=== PATIENT | female | born 1995 | race Hispanic/Latino ===

== ENCOUNTER 2017-12-15 20:41 | Emergency (ER) | payer MEDICAID ==
[~2017-12-15] VITALS: Ht 165.1 cm; Wt 96.2 kg
[2017-12-15 20:58] VITALS: BP 152/68
--- NOTE | 2017-12-15 21:59 | ER.PDOC ---
General Chief Complaint: Extremities Stated Complaint: ANKLE INJURY Time seen by MD: 21:57 Source: patient Exam Limitations: no limitations History of Present Illness Initial Comments Left ankle pain from falling yesterday. She did not hit her head. Severity: moderate Context: fall Modifying Factors: pain on movement Allergies: Coded Allergies: Penicillins (Verified Allergy, Severe, hives, 12/15/17) Past Medical History Medical History: no pertinent history Surgical History: no surgical history LMP (females 10-50): 3 weeks Social History Smoking: non-smoker Alcohol Use: none Drug Use: none Review of Systems Constitutional: no symptoms reported EENTM: no symptoms reported Respiratory: no symptoms reported Cardiovascular: no symptoms reported Gastrointestinal: no symptoms reported Musculoskeletal: see HPI All Other Systems: Reviewed and Negative Physical Exam General Appearance: Alert, No Apparent Distress Foot: nml inspection, non-tender Ankle: tenderness (left ankle), swelling (left ankle) Gait: limited by pain Neuro: sensation nml, motor nml Vascular: no vascular compromise Tendons: tendon function nml Leg/Knee/Thigh: uninjured above ankle Head/ENT: nml inspection, pharynx nml Neck/Back: nml inspection, non-tender Resp/CVS: no resp distress Abdomen: non-tender, no organomegaly EKG/XRAY/CT/US XRAY Comments: No fracture of right ankle Departure Time of Disposition: 22:39 Disposition: 01 HOME, SELF-CARE Impression: Primary Impression: Right ankle injury Condition: Stable Referrals: PCP,UNKNOWN (PCP) PRIMARY CARE PROVIDER Additional Instructions: Ice Tramadol Ibuprofen F/U with your PCP next week Duration or Time Spent with Pa: 45 mins Problem Qualifiers Primary Impression: Right ankle injury Encounter type: initial encounter Qualified Codes: S99.911A - Unspecified injury of right ankle, initial encounter LOUISE WIN MD Dec 15, 2017 21:59
--- NOTE | 2017-12-15 22:21 | DIREP ---
PROCEDURE:XRAY ANKLE MIN 3VWS-RT COMPARISON:None. INDICATIONS:pain FINDINGS: BONES:There is no visible fracture. JOINTS:Within normal limits. SOFT TISSUES:Soft tissue changes. OTHER:Negative. CONCLUSION: 1. There is no visible fracture or disruption of the ankle mortise. Recommend follow-up in 5-7 days if pain and ability to walk are not better. Dictated by: Joni Mckinley M.D. on 12/15/2017 at 10:19 PM
[2017-12-15] MEDS ORDERED: TRIPLE ANTIBIOTIC OINTMENT TP ONE (22:47)
[2017-12-15 22:50] VITALS: BP 134/76
[2017-12-15 22:56] VITALS: BP 134/76
--- NOTE | 2017-12-15 22:56 | NUR ---
Fareed Wrap Placed Fareed wrap on right ankle per Dr. Cain's verbal order
== END 2017-12-15 22:53 | disposition home or self-care (01) ==
LOC: ER 20:41
DX: S99.911A Unspecified injury of right ankle, initial encounter (principal); Z88.0 Allergy status to penicillin; W18.30XA Fall on same level, unspecified, initial encounter; Y93.01 Activity, walking, marching and hiking; Y92.89 Other specified places as the place of occurrence of the external cause; Y99.8 Other external cause status
CPT/HCPCS: 99284; 73610-RT

== ENCOUNTER → 2018-02-01 | Outpatient (CLI) | payer SELFPAY ==
[2018-02-01 16:46] LABS: BASOPHIL % 0.2 % (0.0-0.2); EOSINOPHIL # 0.3 10^3/uL (0.0-0.2); EOSINOPHIL % 3.7 % (0.0-5.0); HEMOGLOBIN 14.7 g/dL (12.0-15.0); LYMPHOCYTES # 2.5 10^3/uL (1.0-4.8); LYMPHOCYTES % 27.3 % (24.0-44.0); MEAN CELL HGB 29.4 pg (26-34); MEAN CELL HGB CONCENTRATION 32.8 g/dL (33-37); MEAN CORP VOLUME 89.6 fL (78-100); MEAN PLATELET VOLUME 11.2 fL (7.8-11.0); MONOCYTES # 0.5 10^3/uL (0.3-0.8); NEUTROPHIL # 5.9 10^3/uL (1.8-7.7); NEUTROPHILS % 63.6 % (41.0-85.0); PLATELET COUNT 283 10^3/uL (150-400); RED CELL DISTRIBUTION WIDTH 12.9 % (11.5-14.5); WHITE BLOOD CELL 9.3 10^3/uL (4.5-11.0)
[2018-02-01 17:43] LABS: CALCIUM 9.4 mg/dL (8.4-10.5); CARBON DIOXIDE 22.7 mmol/L (20.0-32)
== END | disposition home or self-care (01) ==
LOC: LAB 16:17
PROVIDERS: ATTEND Nurse Practitioner Family
DX: Z32.02 Encounter for pregnancy test, result negative (principal); I63.9 Cerebral infarction, unspecified
CPT/HCPCS: 36415; 80053; 82607; 82728; 82746; 83540; 83550; 84703; 85025; 85060

== ENCOUNTER 2020-06-09 20:51 | Emergency (ER) | payer OTHER, SELFPAY ==
[~2020-06-09] VITALS: Ht 167.6 cm; Wt 113.4 kg
[2020-06-09 21:03] VITALS: BP_SYST 153; BP_SYST 158; BP_DIAS 73; BP_DIAS 74
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
--- NOTE | 2020-06-09 21:17 | ER.PDOC ---
General Chief Complaint: Head Injury Stated Complaint: POSSIBLE HEAD INJURY TRAVEL OUT OF US: No Time seen by MD: 09:11 Source: patient, family Exam Limitations: no limitations History of Present Illness Initial Comments MEMORY LOSS Timing/Duration: 1-3 hours Severity: mild Associated Symptoms: denies symptoms Allergies: Coded Allergies: Penicillins (Verified Allergy, Severe, hives, 12/15/17) Past Medical History Medical History: no pertinent history Surgical History: no surgical history Social History Alcohol Use: none Drug Use: none Reviewed Nursing Reviewed: Vital Signs, Abn. Noted Review of Systems Constitutional: no symptoms reported Gastrointestinal: nausea Psychiatric/Neurological: depressed, headache All Other Systems: Reviewed and Negative Physical Exam General Appearance: No Apparent Distress EENT: eyes nml inspection Neck: Non-Tender Respiratory: chest non-tender CVS: reg rate & rhythm Gastrointestinal: Normal Bowel Sounds Back: Normal Inspection Extremities: Normal Range of Motion Neurologic/Psychiatric: data integration architect II-XII NML as Tested, Motor Weakness Skin: Normal Color Lymphatic: No Adenopathy Results/Orders Results/Orders Orders - KALEE MARTIN MD Cbc With Auto Diff (06/09/20 21:10) Comprehensive Metabolic Panel (06/09/20 21:10) Creatine Kinase (06/09/20 21:10) PT (06/09/20 21:10) Partial Thromboplastin Time. (06/09/20 21:10) Troponin I (06/09/20 21:10) Ekg-Routine (06/09/20 21:10) Ct Head Wo Contrast (06/09/20 21:10) Ondansetron (Zofran Odt) (06/09/20 22:04) Ondansetron (Zofran Odt) (06/09/20 22:06) Vital Signs Date Time Temp Pulse Resp B/P (MAP) Pulse Ox O2 Delivery O2 Flow Rate FiO2 06/09/20 21:03 98.2 92 18 158/73 (101) 98 Room Air 06/09/20 21:03 98.0 92 20 06/09/20 21:03 98.2 92 18 98 Administered Medications Medications (Trade) Dose Ordered Sig/Sissy Route PRN Reason Start Time Stop Time Status Last Admin Dose Admin Ondansetron HCl (Zofran Odt) 4 mg STAT STAT SL 06/09/20 22:04 06/09/20 22:05 DC 3/23/21 22:08 4 MG Laboratory Tests Test 06/09/20 21:44 White Blood Count 9.2 10^3/uL (4.5-11.0) Red Blood Count 4.86 10^6/uL (4.00-5.20) Hemoglobin 14.8 g/dL (12.0-15.0) Hematocrit 43.7 % (36.0-46.0) Mean Corpuscular Volume 89.9 fL (78-100) Mean Corpuscular Hemoglobin 30.5 pg (26-34) Mean Corpuscular Hemoglobin Concent 33.9 g/dL (33-36.5) Red Cell Distribution Width 11.9 % (11.5-14.5) Platelet Count 268 10^3/uL (150-400) Mean Platelet Volume 10.9 fL (7.8-11.0) Neutrophils (%) (Auto) 59.3 % (41.0-85.0) Lymphocytes (%) (Auto) 32.0 % (24.0-44.0) Monocytes (%) (Auto) 5.4 % (5.0-12.0) Neutrophils # (Auto) 5.5 10^3/uL (1.8-7.7) Lymphocytes # (Auto) 2.95 10^3/uL1 (1.0-4.8) Monocytes # (Auto) 0.5 10^3/uL (0.3-0.8) Absolute Immature Granulocyte (auto 0.02 10^3 u/L (0-2) Absolute Eosinophils (auto) 0.3 10^3/uL (0.0-0.2) H Immature Granulocytes % 0.20 % (0.00-0.50) Eosinophils % 2.9 % (0.0-5.0) Basophils % 0.2 % (0.0-0.2) Basophils # 0.0 10^3/uL (0.0-0.1) Prothrombin Time 10.6 SEC (9.3-11.3) Prothrombin Time INR (Non-Therap) 1.0 Activated Partial Thromboplast Time 24.1 SEC (24.67-30.72) Sodium Level 142 mmol/L (132-145) Potassium Level 3.8 mmol/L (3.6-5.2) Chloride Level 106.0 mmol/L (96-109) Carbon Dioxide Level 26.0 mmol/L (20.0-32) Anion Gap 13.8 Blood Urea Nitrogen 22 mg/dL (7-18) H Creatinine 1.02 mg/dL (0.59-1.40) Estimated GFR () 80.6 (>/=60) Est GFR (CKD-EPI)(Non-Afr [place]ayan) 66.6 (>/=60) BUN/Creatinine Ratio 21.0 Glucose Level 100 mg/dL (70-110) Calcium Level 8.8 mg/dL (8.4-10.5) Total Bilirubin 0.3 mg/dL (0.2-1.0) Aspartate Amino Transferase (AST) 22 U/L (0-35) Alanine Aminotransferase (ALT) 38 U/L (12-78) Alkaline Phosphatase 97 U/L (50-136) Total Creatine Kinase 97 U/L (26-192) Troponin I < 0.02 ng/mL (0.00-0.05) Total Protein 7.8 g/dL (6.4-8.2) Albumin 4.2 g/dL (3.4-5.0) Globulin 3.6 Albumin/Globulin Ratio 1.166 Progress Progress RECALL BETTER IMPROVING MEMORY EKG/XRAY/CT/US EKG: NSR ER DEPART Departure Time of Disposition: 11:11 Disposition: 01 HOME, SELF-CARE Impression: Primary Impression: TGA (transient global amnesia) Condition: Improved Patient Instructions: Head Injury, Adult, [id number] Referrals: PCP,UNKNOWN (PCP) PRIMARY CARE PROVIDER Duration or Time Spent with Pa: NancyM KALEE MARTIN MD Jun 09, 2020 21:17
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
--- NOTE | 2020-06-09 21:45 | NUR ---
PATIENT CONDITION PATIENT CONTINUES SPEAKING IN SOFT CHILD LIKE TONE. STATES SHE IS ABLE TO REMEMBER HER BIRTHDAY, HOWEVER HAD TO LOOK AT ID BAND TO TELL ME HER CORRECT BIRTHDAY. PATIENT STATES "I HAVE A DOG, MY AUNT'S NAME IS..." PATIENT IS UNABLE TO REMEMBER AUNTS NAME.
--- NOTE | 2020-06-09 21:48 | NUR ---
RAD PATIENT TRANSPORTED TO CT FOR HEAD CT AT THIS TIME.
[2020-06-09 21:52] LABS: BASOPHIL % 0.2 % (0.0-0.2); EOSINOPHIL # 0.3 10^3/uL (0.0-0.2); EOSINOPHIL % 2.9 % (0.0-5.0); LYMPHOCYTES # 2.95 10^3/uL1 (1.0-4.8); MEAN CORP HGB 30.5 pg (26-34); MONOCYTES # 0.5 10^3/uL (0.3-0.8); MONOCYTES % 5.4 % (5.0-12.0); NEUTROPHIL # 5.5 10^3/uL (1.8-7.7); NEUTROPHILS % 59.3 % (41.0-85.0); PLATELET COUNT 268 10^3/uL (150-400); RED CELL DISTRIBUTION WIDTH 11.9 % (11.5-14.5)
--- NOTE | 2020-06-09 21:55 | NUR ---
RAD BACK FROM CT, RECONNECTED TO BEDSIDE MONITOR.
--- NOTE | 2020-06-09 22:00 | PCM.EKG ---
[facility] Test Date: 2020-06-09 Test Time: 21:59:04 Pat Name: CHINO FLORES Department: Patient ID: [facility]-[id number] Room: Gender: F Registered Safety Engineer: UZMA : [id number] Requested By: JOSE MIGUEL YATES Order Number: [id number] Reading MD: Jose Miguel Yates Measurements Intervals [place] Rate: 82 P: 24 NE: 139 QRS: 62 QRSD: 85 T: -18 QT: 347 QTc: 406 Interpretive Statements Sinus rhythm Nonspecific T abnormalities, diffuse leads No previous ECG available for comparison Electronically Signed On 06-11-2020 18:42:17 CDT by Jose Miguel Yates Please click the below link to view image of tracing.
[2020-06-09] MEDS ORDERED: ZOFRAN ODT SL STA (22:04)
[2020-06-09] MEDS ORDERED: ZOFRAN ODT ONE (22:06)
[2020-06-09 22:12] LABS: ALANINE AMINOTRANSFERASE(ML) 38 U/L (12-78); ALKALINE PHOSPHATASE 97 U/L (50-136); ASPARTATE AMINO TRANSFERASE 22 U/L (0-35); CALCIUM 8.8 mg/dL (8.4-10.5); GLUCOSE 100 mg/dL (70-110)
--- NOTE | 2020-06-09 22:24 | NUR ---
CANCELLED ORDERS CHEST XRAY, URINALYSIS CANCELLED BY DR. MARTIN.
--- NOTE | 2020-06-09 22:43 | DIREP ---
PROCEDURE:CT HEAD OR BRAIN W/O CONTRAST COMPARISON:None. INDICATIONS:memory loss TECHNIQUE:CT images were created without intravenous contrast. FINDINGS: VENTRICLES:The ventricles are normal in size and configuration. CEREBRUM:Normal cerebral morphology with appropriate love white matter differentiation. CEREBELLUM:Low-lying cerebellar tonsils. Question carry or malformation. BRAINSTEM:Negative. BASAL CISTERNS:Negative. HEMORRHAGE:No MASS LESION:No ACUTE INFARCT:No SKULL:Normal. SINUSES:Normal. OTHER:None CONCLUSION: 1. Low-lying cerebellar tonsils. Question [place] 1 malformation. 2. Otherwise, negative head CT Dictated by: Anuel Valerio MD on 06/09/2020 at 10:40 PM
== END 2020-06-09 22:56 | disposition home or self-care (01) ==
LOC: ER 20:51
DX: G45.4 Transient global amnesia (principal); F32.9 Major depressive disorder, single episode, unspecified; Z88.0 Allergy status to penicillin; Z79.899 Other long term (current) drug therapy
CPT/HCPCS: 36415; 70450; 80053; 82550; 84484; 85025; 85610; 85730; 93005; 99285